=== PATIENT | female | born 1975 | race Caucasian/White ===

== ENCOUNTER 2017-01-01 14:15 | Emergency (ER) | payer MEDICAID ==
[2017-01-01] MEDS ORDERED: ASPIRIN 81 MG TABLET, CHEWABLE PO ONE (14:26)
[2017-01-01 15:20] LABS: ABSOLUTE BASOPHILS # (AUTO) 0.1 10^3/uL (0.0-0.2); ABSOLUTE EOSINOPHILS # (AUTO) 0.1 10^3/uL (0.0-0.6); ABSOLUTE LYMPHOCYTES (AUTO) 1.3 10^3/uL (0.5-4.7); ABSOLUTE MONOCYTES (AUTO) 0.5 10^3/uL (0.1-1.4); ABSOLUTE NEUT (AUTO) 5.7 10^3/uL (1.7-8.2); EOSINOPHILS % (AUTO) 1.6 % (0-6); HEMATOCRIT 43.6 % (36.0-47.0); HEMOGLOBIN 15.7 g/dL (12.0-15.5); HGB HCT DIFFERENCE 3.5; LYMPHOCYTES % (AUTO) 17.2 % (13-45); MEAN CORPUSCULAR HEMOGLOBIN 31.8 pg (27.0-33.4); MEAN CORPUSCULAR VOLUME 89 fl (80-97); MONOCYTES % (AUTO) 6.6 % (3-13); RED BLOOD COUNT 4.93 10^6/uL (3.72-5.28); RED CELL DISTRIBUTION WIDTH 12.3 % (11.5-14.0); SEGMENTED NEUTROPHILS % (AUTO) 73.6 % (42-78); WHITE BLOOD COUNT 7.8 10^3/uL (4.0-10.5)
--- NOTE | 2017-01-01 15:25 | ER Document Report ---
ED General - General Chief Complaint: Palpitations Stated Complaint: PALPITATIONS Time seen by provider: 15:22 Mode of Arrival: Medic Information source: Patient Notes: 41-year-old female with abrupt left lower chest heaviness associated with shortness of breath beginning about an hour prior to arrival. She reports she felt well when she woke up this morning. She reports she developed some nausea after arrival here. She denies diaphoresis. She reports one episode similar to this but not nearly as bad within the past few years that resolved on its own. He reports no prior cardiac workup. She denies earache, sore throat, headache, visual disturbances, weakness to any extremity. She denies swelling discharge. She does report tingling to both hands. He does report sensation of heart racing when this began. She reports no cardiac history and family no history of blood clots and family and is not using oral contraceptives. She reports no recent travel or immobilization Physical Exam: General: Alert, appears well. HEENT: Normocephalic. Atraumatic. PERRLA. Extraocular movements intact. Oropharynx clear. Neck: Supple. Non-tender. Respiratory: No respiratory distress. Clear and equal breath sounds bilaterally. Cardiovascular: Tachycardic regular no murmur PMI not displaced Abdominal: Normal Inspection. Soft, non-tender. No distension. Normal Bowel Sounds. No guarding rebound rigidity Back: Non-tender. No deformity or step off. Extremities: Moves all four extremities. Upper extremities: Normal inspection. Non-tender. Normal color. Normal ROM. Normal temperature. Lower extremities: Normal inspection. Non-tender. No edema. Normal color. Normal ROM. Normal temperature. Neurological: Speech clear mentation normal moves all extremities well Psychological: Normal affect. Normal Mood. Skin: Warm. Dry. Normal color. TRAVEL OUTSIDE OF THE [place] IN LAST 30 DAYS: No - Related Data Allergies/Adverse Reactions: codeine Adverse Reaction (Verified 01/14/17 14:51) Home Medications: Current Home Medications Cholecalciferol (Vitamin D3) [Vitamin D3 2000 unit Tablet] 2,000 units PO DAILY 01/01/17 [History] Levothyroxine Sodium [Synthroid 0.025 mg Tablet] 25 mcg PO DAILY 01/01/17 [ History] Losartan/Hydrochlorothiazide [Hyzaar 100-25 Tablet] 1 tab PO DAILY 01/01/17 [ History] Past Medical History - Social History Smoking Status: Former Smoker Family History: Hypertension - Past Medical History Cardiac Medical History: Reports: Hx Hypertension Denies: Hx Coronary Artery Disease, Hx DVT, Hx Hypercholesterolemia Endocrine Medical History: Denies: Hx Diabetes Mellitus Type 2 Past Surgical History: Reports: Hx Cholecystectomy, Hx Tubal Ligation Review of Systems - Review of Systems Constitutional: denies: Chills, Fever EENT: denies: Ear pain, Throat pain Cardiovascular: See HPI Respiratory: Short of breath. denies: Cough Gastrointestinal: denies: Abdominal pain, Diarrhea, Blood in vomit, Black stools , Rectal bleeding Genitourinary: denies: Burning, Dysuria Musculoskeletal: denies: Back pain Skin: denies: Rash Hematologic/Lymphatic: denies: Swollen glands Neurological/Psychological: denies: Weakness, Numbness Physical Exam - Vital signs Vitals: Resp Pulse Ox 10 L 100 01/01/17 14:40 01/01/17 14:40 Course - Re-evaluation Re-evalutation: 01/01/17 18:51 Patient has had intermittent chest discomfort since arrival and has had a sensation of rapid heartbeat but has not been tachycardic beyond approximately 102. There does seem to be sizable anxiety component of some of her symptoms are certainly consistent with acute coronary syndrome. Because of her dramatic presentation also obtained a CTA chest was negative for PE. I discussed case with Dr. Jarrett he will be coming to see the patient - Vital Signs Vital signs: Temp Pulse Resp BP Pulse Ox 97.8 F 25 H 112/77 96 01/01/17 20:00 01/01/17 20:01 01/01/17 20:00 01/01/17 20:01 - Laboratory Result Diagrams: 01/01/17 15:10 01/01/17 15:10 Laboratory results interpreted by me: 01/01/17 01/01/17 15:10 15:10 Hgb 15.7 H Sodium 136.8 L Glucose 119 H Total Protein 8.5 H - Diagnostic Test Radiology reviewed: Image reviewed, Reports reviewed - EKG Interpretation by Me Additional EKG results interpreted by me: 01/01/17 15:25 EKG reviewed by myself shows sinus tachycardia 109 no acute changes 01/01/17 18:51 Repeat EKG review, so shows sinus rhythm at 86 no acute changes Discharge - Discharge Condition: Stable Disposition: HOME, SELF-CARE Instructions: Chest Pain of Unclear Cause ([facility]) Referrals: MELVINA JARRETT MD [Primary Care Provider] -
[2017-01-01 15:37] LABS: ALANINE AMINOTRANSFERASE 21 U/L (9-52); ALBUMIN 4.5 g/dL (3.5-5.0); ALKALINE PHOSPHATASE 83 U/L (38-126); ANION GAP 13 (5-19); ASPARTATE AMINO TRANSFERASE 26 U/L (14-36); BILIRUBIN,TOTAL 0.9 mg/dL (0.2-1.3); BLOOD UREA NITROGEN 12 mg/dL (7-20); CALCIUM 10.2 mg/dL (8.4-10.2); CARBON DIOXIDE 24 mmol/L (22-30); CHLORIDE 100 mmol/L (98-107); CREATINE KINASE 104 U/L (30-135); CREATININE RESULT 0.86 mg/dL (0.52-1.25); GLUCOSE 119 mg/dL (75-110); POTASSIUM 3.7 mmol/L (3.6-5.0); SODIUM 136.8 mmol/L (137-145); TOTAL PROTEIN 8.5 g/dL (6.3-8.2)
[2017-01-01] MEDS: NITROGLYCERIN 0.4 MG/TAB 25 TAB/BOTTLE SL PRN ×3 (15:39→16:46)
[2017-01-01 15:49] LABS: CREATINE KINASE MB 0.45 ng/mL (<4.55)
[2017-01-01 15:50] LABS: TROPONIN I < 0.012 ng/mL
[2017-01-01 16:00] LABS: LIPASE 122.1 U/L (23-300); MAGNESIUM 1.7 mg/dL (1.6-2.3)
[2017-01-01] MEDS ORDERED: ACETAMINOPHEN 325 MG TABLET PO ONE (19:03)
[2017-01-01 20:09] VITALS: BP 112/77
--- NOTE | 2017-01-01 22:03 | EKG REPORT ---
SEVERITY:- BORDERLINE ECG - SINUS RHYTHM PROBABLE LEFT ATRIAL ABNORMALITY : Confirmed by: Crystal Tamayo MD 01-Jan-2017 22:02:39
--- NOTE | 2017-01-01 22:03 | EKG REPORT ---
SEVERITY:- ABNORMAL ECG - SINUS TACHYCARDIA PROBABLE LEFT ATRIAL ABNORMALITY NONSPECIFIC INTRAVENTRICULAR CONDUCTION DELAY : Confirmed by: Crystal Tamayo MD 01-Jan-2017 22:02:46
== END 2017-01-01 21:13 | disposition home or self-care (01) ==
LOC: ER 14:15
DX: R07.9 Chest pain, unspecified (principal); R06.02 Shortness of breath; R09.89 Other specified symptoms and signs involving the circulatory and respiratory systems; R11.0 Nausea; R20.2 Paresthesia of skin; I10 Essential (primary) hypertension; R00.0 Tachycardia, unspecified; Z87.891 Personal history of nicotine dependence
CPT/HCPCS: 93005; 99285; 36415; 82553; 82550; 83690; 83735; 85025; 80053; 84484; 85379; 83880; 71010; 71275; 93010; J3490 ×2

== ENCOUNTER 2017-01-14 13:53 | Emergency (ER) | payer SELFPAY ==
[2017-01-14 14:20] VITALS: BP 132/88
--- NOTE | 2017-01-14 14:58 | ER Document Report ---
ED Medical Screen (RME) - General Stated Complaint: SOMETHING STUCK IN THROAT Time seen by provider: 14:57 Mode of Arrival: Ambulatory Information source: Patient Notes: 41-year-old female feels like a peanut or raisin stuck in her throat after she ate [place] mixbat 1245 this afternoon. Vital signs are stable. Only feels it when she swallows. I have greeted and performed a rapid initial assessment of this patient. A comprehensive ED assessment, evaluation of the patient, analysis of test results , and completion of the medical decision making process will be conducted by additional ED providers. TRAVEL OUTSIDE OF THE [place] IN LAST 30 DAYS: No - Related Data Allergies/Adverse Reactions: codeine Adverse Reaction (Verified 01/14/17 14:51) Past Medical History - Past Medical History Cardiac Medical History: Reports: Hx Hypertension Denies: Hx Coronary Artery Disease, Hx DVT, Hx Hypercholesterolemia Endocrine Medical History: Denies: Hx Diabetes Mellitus Type 2 Past Surgical History: Reports: Hx Cholecystectomy, Hx Tonsillectomy, Hx Tubal Ligation Physical Exam - Vital signs Vitals: Temp Pulse Resp BP Pulse Ox 98.1 F 63 16 132/88 H 98 01/14/17 14:19 01/14/17 14:19 01/14/17 14:19 01/14/17 14:19 01/14/17 14:19 Course - Vital Signs Vital signs: Temp Pulse Resp BP Pulse Ox 98.1 F 63 16 132/88 H 98 01/14/17 14:19 01/14/17 14:19 01/14/17 14:19 01/14/17 14:19 01/14/17 14:19
== END 2017-01-14 23:30 | disposition left against medical advice (07) ==
LOC: ER 13:53
DX: R09.89 Other specified symptoms and signs involving the circulatory and respiratory systems (principal); I10 Essential (primary) hypertension; Z53.20 Procedure and treatment not carried out because of patient's decision for unspecified reasons
CPT/HCPCS: 70360; 99281

== ENCOUNTER 2017-01-14 18:07 | Emergency (ER) | payer SELFPAY ==
--- NOTE | 2017-01-14 20:01 | ER Document Report ---
ED Medical Screen (RME) - General Stated Complaint: DIFFICULTY SWALLOWING Time seen by provider: 19:57 Mode of Arrival: Ambulatory Information source: Patient Notes: 41-year-old female was eating trail mix at 1245 today and felt like she got a peanut raisin stuck in her throat. She still feels that sensation when she drinks. IT got irritated when she tried to use her vapor this afternoon. She had to leave to cook pickled meat her son earlier and she is checked back into the emergency room the original soft tissue of the neck x-ray was read as negative by the radiologist. I consulted with Dr. Per Daugherty to see if they wanted any imaging or anything else done at this time and he states no. No stridor, able to drink. I have greeted and performed a rapid initial assessment of this patient. A comprehensive ED assessment, evaluation of the patient, analysis of test results , and completion of the medical decision making process will be conducted by additional ED providers. TRAVEL OUTSIDE OF THE [place] IN LAST 30 DAYS: No - Related Data Allergies/Adverse Reactions: codeine Adverse Reaction (Verified 01/14/17 19:55) Past Medical History - Past Medical History Cardiac Medical History: Reports: Hx Hypertension Denies: Hx Coronary Artery Disease, Hx DVT, Hx Hypercholesterolemia Endocrine Medical History: Denies: Hx Diabetes Mellitus Type 2 Renal/ Medical History: Denies: Hx Peritoneal Dialysis Past Surgical History: Reports: Hx Cholecystectomy, Hx Tonsillectomy, Hx Tubal Ligation
[2017-01-14 20:02] VITALS: BP 138/78
== END 2017-01-14 21:55 | disposition left against medical advice (07) ==
LOC: ER 18:07
DX: R13.10 Dysphagia, unspecified (principal); R09.89 Other specified symptoms and signs involving the circulatory and respiratory systems; I10 Essential (primary) hypertension; Z53.20 Procedure and treatment not carried out because of patient's decision for unspecified reasons
CPT/HCPCS: 99281

== ENCOUNTER 2018-07-04 21:46 | Emergency (ER) | payer MEDICAID ==
[2018-07-04 22:01] VITALS: BP 124/71
[2018-07-04] MEDS ORDERED: TETRACAINE HCL 0.5% OPH SOLN 2 ML OS ONE (22:11)
[2018-07-04] MEDS ORDERED: LORAZEPAM 1 MG TABLET PO ONE (23:07)
--- NOTE | 2018-07-04 23:53 | ER Document Report ---
ED General - General Chief Complaint: Eye Problem Stated Complaint: RIGHT EYE REDNESS Time Seen by Provider: 07/04/18 22:11 Notes: Patient is a 43 year old female who presents with approximately 12 hours of a sensation of a foreign body with associated hyperlacrimation to the right eye. She states that she was diagnosed with a conjunctivitis 2 weeks ago, treated with ciprofloxacin drops to the eye and that this had effectively resolved. She states that her symptoms however started earlier today and have gotten progressively worse. She describes as an itching, scratching sensation to the eye. Nothing improves or worsens the discomfort. She has not seen her eye physician regarding today's concerns. She denies any change in her visual acuity, headache, discharge from the eye, or history of similar symptoms in the past. No trauma to the eye. She has not worn contacts in approximately 2 weeks. TRAVEL OUTSIDE OF THE [place] IN LAST 30 DAYS: No - Related Data Allergies/Adverse Reactions: codeine Adverse Reaction (Verified 07/04/18 21:47) Past Medical History - General Information source: Patient - Social History Smoking Status: Never Smoker Chew tobacco use (# tins/day): No Frequency of alcohol use: None Drug Abuse: None Lives with: Spouse/Significant other Family History: Hypertension Patient has suicidal ideation: No Patient has homicidal ideation: No - Past Medical History Cardiac Medical History: Reports: Hx Hypertension Denies: Hx Coronary Artery Disease, Hx DVT, Hx Hypercholesterolemia Endocrine Medical History: Denies: Hx Diabetes Mellitus Type 2 Renal/ Medical History: Denies: Hx Peritoneal Dialysis Past Surgical History: Reports: Hx Cholecystectomy, Hx Tonsillectomy, Hx Tubal Ligation Review of Systems - Review of Systems Notes: Constitutional: Negative for fever. HENT: Negative for sore throat. Eyes: Positive for right eye irritation and hyperlacrimation Cardiovascular: Negative for chest pain. Respiratory: Negative for shortness of breath. Gastrointestinal: Negative for abdominal pain, vomiting or diarrhea. Genitourinary: Negative for dysuria. Musculoskeletal: Negative for back pain. Skin: Negative for rash. Neurological: Negative for headaches, weakness or numbness. 10 point ROS negative except as marked above and in HPI. Physical Exam - Vital signs Vitals: Temp Pulse Resp BP Pulse Ox 98.5 F 79 18 124/71 99 07/04/18 21:54 07/04/18 21:54 07/04/18 21:54 07/04/18 21:54 07/04/18 21:54 Interpretation: Normal Notes: PHYSICAL EXAMINATION: GENERAL: Well-appearing, well-nourished and in no acute distress. HEAD: Atraumatic, normocephalic. EYES: Pupils equal round and reactive to light, extraocular movements intact, there is conjunctival injection on the temporal aspect of the right eye. There is a gelatinous substance overlying the inferior temporal aspect of the conjunctiva on the right. Fluorescein staining without uptake. Lid flipped without any evidence of retained foreign body. ENT: nares patent, oropharynx clear without exudates. Moist mucous membranes. NECK: Normal range of motion, supple without lymphadenopathy LUNGS: Breath sounds clear to auscultation bilaterally and equal. No wheezes rales or rhonchi. HEART: Regular rate and rhythm without murmurs ABDOMEN: Soft, nontender, normoactive bowel sounds. No guarding, no rebound. No masses appreciated. EXTREMITIES: Normal range of motion, no pitting or edema. No cyanosis. NEUROLOGICAL: No focal neurological deficits. Moves all extremities spontaneously and on command. PSYCH: Normal mood, normal affect. SKIN: Warm, Dry, normal turgor, no rashes or lesions noted. Course - Re-evaluation Re-evalutation: 07/04/18 23:52 Patient presents with gelatinous growth to the temporal aspect of her right sclera without changes in vision, eye pain. Visual acuity 20/25 on right, 20/ 20 on left at the bedside. Patient does not wear contacts currently but was recently diagnosed with a bacterial conjunctivitis, treated with ciprofloxacin and has been not using her contacts since that time. Exam with fluorescein stain does not show any uptake to suggest corneal abrasion or foreign body. Eyelid was flipped, no evidence of foreign body. Extraocular motions intact. Pupillary responses normal. Exam is most consistent with a pterigium vs pinguecula. I have instructed the patient to take lubricating eyedrops, have instructed her to follow very closely with ophthalmology. At this time will discharge with return precautions and follow-up recommendations. Verbal discharge instructions given a the bedside and opportunity for questions given. Medication warnings reviewed. Patient is in agreement with this plan and has verbalized understanding of return precautions and the need for eye care follow- up within the next 24 hours. 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 They may wish to start topical steroids to your eye. You should get [id number] eye lubricant drops and use them regularly per box instructions to keep her eyes moisturized. Do not wear contacts until you are cleared by your tablet technician. Return if you have changes in your vision, worsening of your discomfort to the eye, fever, or any other symptoms that are worrisome to you. Referrals: MELVINA JARRETT MD [Primary Care Provider] - Follow up as needed BHARTI DEWITT MD [ACTIVE STAFF] - Follow up as needed
== END 2018-07-05 00:15 | disposition home or self-care (01) ==
LOC: ER 21:46
DX: H11.011 Amyloid pterygium of right eye (principal); H10.9 Unspecified conjunctivitis; I10 Essential (primary) hypertension
CPT/HCPCS: 99283; J3490

== ENCOUNTER → 2019-02-06 | Outpatient (CLI) | payer BC ==
--- NOTE | 2019-02-06 11:22 | WOMENS IMAGING REPORT ---
EXAM DESCRIPTION: BILAT SCREENING MAMMO W/CAD COMPLETED DATE/TIME: 02/06/2019 10:39 am REASON FOR STUDY: Z12.31 ROUTINE BILATERAL SCREENING Z12.31 ENCNTR SCREEN MAMMOGRAM FOR MALIGNANT N EOPLASM OF DRISS COMPARISON: 2014 TECHNIQUE: Standard craniocaudal and mediolateral oblique views of each breast recorded using [place] l acquisition. LIMITATIONS: None. FINDINGS: Findings present which are benign by mammographic criteria. No suspicious masses, calcifi cations or architectural distortion. Pertinent benign findings: Left asymmetry. Read with the assistance of CAD. .[facility] - R2 Cenova Version 1.3 .[facility] - R2 Cenova Version 2.1 .[facility] - R2 Cenova Version 2.4 .[facility] [place] - R2 Cenova Version 2.4 .[facility] - R2 [employer] Version 9.2 Benign mammographic findings may include one or more of the following: Smooth masses, popcorn/rim/co arse calcifications, asymmetries, post-procedure changes, and lesions with long-standing stability. IMPRESSION: BENIGN MAMMOGRAPHIC FINDINGS. BIRADS 2 BREAST DENSITY: b. There are scattered areas of fibroglandular density. BIRAD: 2 BENIGN FINDING(S) RECOMMENDATION: ROUTINE SCREENING COMMENT: The patient has been notified of the results by letter per SA requirements. Additional no tification policies are in place for contacting patient with suspicious or incomplete findings. Quality ID #[id number]: The [employer] recommends an annual screening mammogram for women aged 40 years or over. This facility utilizes a reminder system to ensure that all patients receive reminder letters, and/or direct phone calls for appointments. This includes reminders for routine scr eening mammograms, diagnostic mammograms, or other Breast Imaging Interventions when appropriate. Th is patient will be placed in the appropriate reminder system. The [employer] (A[employer]) has developed recommendations for screening MRI of the breast s in certain patient populations, to be used in conjunction with mammography. Breast MRI surveillanc e may be appropriate for women with more than 20% lifetime risk of developing breast cancer as deter mined by genetic testing, significant family history of the disease, or history of mantle radiation f or Hodgkins Disease. ACR Practice Guidelines 2008. TECHNICAL DOCUMENTATION: FINDING NUMBER: (1) ASSESSMENT: (1) JOB ID: [id number] [employer]- All Rights Reserved Reading location - IP/workstation name: [email or web address]
== END ==
LOC: WI 10:13
PROVIDERS: ATTEND Internal Medicine
DX: Z12.31 Encounter for screening mammogram for malignant neoplasm of breast (principal)
CPT/HCPCS: 77067